=== PATIENT | female | born 1995 | race African-American/Black ===

== ENCOUNTER 2022-01-21 18:39 | Emergency (ER) | payer SELFPAY ==
[2022-01-21] MEDS ORDERED: Dexamethasone 10 MG/ML VIAL ONE (19:33)
[2022-01-21] MEDS ORDERED: diphenhydrAMINE 25 MG CAP ONE (19:33)
== END 2022-01-21 19:52 | disposition home or self-care (01) ==
LOC: CSHERS 18:39
DX: R21 Rash and other nonspecific skin eruption (principal); L29.9 Pruritus, unspecified
CPT/HCPCS: 96372; 99282; J1100

== ENCOUNTER 2022-03-25 16:11 | Emergency (ER) | payer SELFPAY ==
[2022-03-25 17:07] LABS: Bilirubin Neg (Negative); Blood, Urine 150 (Negative); Clarity Clear (Clear); Glucose, Urine (Dipstick) Normal (Negative); Ketone, Urine Negative (Negative); Leukocyte 25 (Negative); Nitrite Positive (Negative); Protein, Urine (Dipstick) 15 mg/dl (Neg-Trace); Specific Gravity, Urine 1.015 (1.002-1.036)
[2022-03-25 17:17] LABS: Bacteria/HPF Rare-Few HPF (None Seen); Squamous Epithelial 0-3 HPF (0-3); WBC/HPF 0-3 HPF (0-3)
== END 2022-03-25 17:31 | disposition home or self-care (01) ==
LOC: CSHERS 16:11
DX: N76.0 Acute vaginitis (principal); N39.0 Urinary tract infection, site not specified
CPT/HCPCS: 81003; 81015; 99283

== ENCOUNTER 2022-04-15 18:50 | Emergency (ER) | payer OTHER, SELFPAY ==
[2022-04-15] MEDS ORDERED: Acetaminophen 500 MG TAB ONE (19:29)
== END 2022-04-15 19:30 | disposition home or self-care (01) ==
LOC: CSHERS 18:50
DX: S06.0X0A Concussion without loss of consciousness, initial encounter (principal); V43.62XA Car passenger injured in collision with other type car in traffic accident, initial encounter
CPT/HCPCS: 99283

== ENCOUNTER 2022-11-15 14:34 | Emergency (ER) | payer OTHER, SELFPAY ==
[2022-11-15] MEDS ORDERED: Ibuprofen 200 MG TAB ONE (15:26)
== END 2022-11-15 16:08 | disposition home or self-care (01) ==
LOC: CSHERS 14:34
DX: M25.512 Pain in left shoulder (principal); M25.562 Pain in left knee; V49.10XA Passenger injured in collision with unspecified motor vehicles in nontraffic accident, initial encounter; Y92.410 Unspecified street and highway as the place of occurrence of the external cause
CPT/HCPCS: 99283

== ENCOUNTER 2023-06-19 15:59 | Emergency (ER) | payer SELFPAY | END 2023-06-19 17:45 | disposition home or self-care (01) | LOC: CSHERS 15:59 | DX: K59.00 Constipation, unspecified (principal); F17.210 Nicotine dependence, cigarettes, uncomplicated | CPT/HCPCS: 99283 ==

== ENCOUNTER 2024-01-31 15:04 | Emergency (ER) | payer SELFPAY ==
[2024-01-31] MEDS ORDERED: HYDROcodone/Acetaminophen 5/325 mg Tablet ONE (15:43)
[2024-01-31] MEDS ORDERED: predniSONE 20 MG TAB ONE (15:43)
[2024-01-31] MEDS ORDERED: Ibuprofen 200 MG TAB ONE (15:43)
== END 2024-01-31 16:02 | disposition home or self-care (01) ==
LOC: CSHERS 15:04
DX: M54.16 Radiculopathy, lumbar region (principal); M54.50 Low back pain, unspecified; G89.29 Other chronic pain; F17.210 Nicotine dependence, cigarettes, uncomplicated
CPT/HCPCS: 99283; J7512

== ENCOUNTER 2024-02-12 06:00 | Emergency (ER) | payer SELFPAY ==
[2024-02-12] MEDS ORDERED: Dexamethasone 10 MG/ML VIAL ONE (06:16)
[2024-02-12] MEDS ORDERED: Acetaminophen 500 MG TAB ONE (06:16)
== END 2024-02-12 06:48 | disposition home or self-care (01) ==
LOC: CSHERS 06:00
DX: J02.9 Acute pharyngitis, unspecified (principal); K08.89 Other specified disorders of teeth and supporting structures; F17.210 Nicotine dependence, cigarettes, uncomplicated
CPT/HCPCS: 87081; 87430; 99283; J1100

== ENCOUNTER 2024-04-10 13:15 | Emergency (ER) | payer BC, SELFPAY ==
[2024-04-10 15:54] LABS: Influenza A by NAA Not Detected (NotDetected); Influenza B by NAA Not Detected (NotDetected); SARS-CoV-2 NAA Rapid Test DETECTED (NotDetected)
== END 2024-04-10 15:30 | disposition home or self-care (01) ==
LOC: CSHERS 13:15
DX: U07.1 COVID-19 (principal); B34.9 Viral infection, unspecified; Z87.891 Personal history of nicotine dependence
CPT/HCPCS: 99283

== ENCOUNTER 2024-06-18 07:07 | Emergency (ER) | payer BC ==
[2024-06-18] MEDS ORDERED: Ibuprofen 200 MG TAB ONE (07:41)
== END 2024-06-18 07:47 | disposition home or self-care (01) ==
LOC: CSHERS 07:07
DX: M51.369 Other intervertebral disc degeneration, lumbar region without mention of lumbar back pain or lower extremity pain (principal); G89.29 Other chronic pain; Z87.891 Personal history of nicotine dependence
CPT/HCPCS: 99283

== ENCOUNTER 2025-07-20 13:52 | Emergency (ER) | payer BC ==
[2025-07-20] MEDS ORDERED: diphenhydrAMINE 25 MG CAP ONE (15:34)
[2025-07-20] MEDS ORDERED: Famotidine 20 MG TAB ONE ×2 (15:34→15:35)
[2025-07-20] MEDS ORDERED: predniSONE 20 MG TAB ONE (15:36)
== END 2025-07-20 16:45 ==
LOC: CSHERS 13:52
DX: L25.9 Unspecified contact dermatitis, unspecified cause (principal); Z87.891 Personal history of nicotine dependence
CPT/HCPCS: 99282; J7512

== ENCOUNTER 2025-08-16 22:46 | Emergency (ER) | payer BC ==
[2025-08-16] MEDS ORDERED: diphenhydrAMINE 50 MG/ML VIAL ONE (23:02)
[2025-08-16] MEDS ORDERED: Prochlorperazine 10 MG/2 ML VIAL ONE (23:03)
[2025-08-16] MEDS ORDERED: Ketorolac Tromethamine 30 MG (1 mL) VIAL ONE (23:03)
[2025-08-16 23:32] LABS: #Basophils 0.06 10x3/uL (0.0-0.2); #Eosinophils 0.48 10x3/uL (0.0-0.5); #Monocytes 0.98 10x3/uL (0.0-1.1); #Neutrophils 4.56 10x3/uL (1.5-8.4); %Basophils 0.6 % (0.0-2.0); %Eosinophils 4.9 % (0.0-6.0); %Lymphocytes 37.8 % (18.0-47.0); %Monocytes 10.0 % (0.0-10.0); %Neutrophils 46.5 % (40.0-75.0); Hematocrit 39.1 % (34.9-44.5); Hemoglobin 13.0 g/dL (12.0-15.5); Mean Corpuscular Hemoglobin 32.4 pg (27.0-33.0); Mean Corpuscular Volume 97.5 fL (81.6-98.3); Platelet Count 314 10x3/uL (150-450); Red Blood Cell (RBC) Count 4.01 10x6/uL (3.90-5.03); White Blood Cell (WBC) Count 9.81 10x3/uL (3.5-10.5)
[2025-08-16 23:37] LABS: Pregnancy Test - Urine (BHCG) Negative (Negative); Pregu Control Background? CLEAR/WHITE (CLR/WHITE); Pregu Control Bar Appear? YES (CONTROL BAR)
[2025-08-16 23:55] LABS: Glucose, Urine (Dipstick) Normal (Negative); Leukocyte Negative (Negative); Protein, Urine (Dipstick) Negative (Neg-Trace); Specific Gravity, Urine 1.025 (1.005-1.030)
[2025-08-16 23:56] LABS: Bacteria/HPF 1+ HPF (None Seen); CAUTI Indications for Culture Pelvic or flank pain; Mucous/LPF 2+ LPF (<2+); RBC/HPF 21-50 HPF (0-3); WBC/HPF 0-3 HPF (0-3)
[2025-08-16 23:57] LABS: Urine Culture Reflex No No
[2025-08-17] MEDS ORDERED: cefTRIAXone (ROCEPHIN) 1 GM VIAL ONE (00:43)
[2025-08-17 00:52] LABS: ALT (SGPT) 10 U/L (Less than 34); AST (SGOT) 17 U/L (11-34); Albumin 3.6 g/dL (3.1-4.5); Alkaline Phosphatase 61 U/L (40-110); Anion Gap 12 mmol/L (10-20); BUN (Urea Nitrogen) 13 mg/dL (7.0-18.7); Bilirubin, Total 0.3 mg/dL (0.3-1.2); Calc. Creatinine Clearance 0 mL/min (70-130); Calcium 8.5 mg/dL (7.8-10.44); Carbon Dioxide 24 mmol/L (22-29); Chloride 106 mmol/L (98-107); Globulin 2.9 g/dL (2.4-3.5); Glucose 120 mg/dL (70-105); Lipase 96 U/L (8-78); Potassium 3.3 mmol/L (3.5-5.1); Sodium 139 mmol/L (136-145)
== END 2025-08-17 | disposition home or self-care (01) ==
LOC: CSHERS 22:46
DX: N30.01 Acute cystitis with hematuria (principal); E87.6 Hypokalemia; E66.9 Obesity, unspecified
CPT/HCPCS: 74176; 80053; 81001; 81025; 83690; 85025; 96374; 96375; J0696; J0780; J1200; J1885